=== PATIENT | female | born 1990 | race Caucasian/White ===

== ENCOUNTER 2019-04-08 22:49 | Emergency (ER) | payer OTHER ==
[~2019-04-08] VITALS: Ht 157.5 cm; Wt 61.2 kg
--- NOTE | 2019-04-08 23:06 | ED Lower Extremity ---
General Chief Complaint: Lower Extremity Stated Complaint: RT ANKLE AND FOOT INJ Source: patient Exam Limitations: no limitations History of Present Illness Date Seen by Provider: Apr 08, 2019 Time Seen by Provider: 22:55 Initial Comments The patient is a pleasant 28-year-old female. The coworker for evaluation of a right foot and ankle injury. She states at 1930 this evening a pallet full products at work rolled over her foot and ankle and tender foot underneath. She had to push the pallet off. Initially she didn't think the injury was significant and went to dinner and tried to walk it off. The pain continued and she has to walk with a limp. 4, calm, appears to be in no distress. She denies any other complaints at this time. She did not fall or hit her head or lose consciousness. Onset: this evening Pain/Injury Location: right foot, right ankle Method of Injury: twisted, other (pallet rolled over her foot and ankle) Modifying Factors: Improves With Movement (makes it worse), Improves With Rest (makes it better) Allergies and Home Medications Patient Home Medication List Home Medication List Reviewed: Yes Review of Systems Constitutional: no symptoms reported EENTM: no symptoms reported Respiratory: no symptoms reported Cardiovascular: no symptoms reported Gastrointestinal: no symptoms reported Genitourinary: no symptoms reported Musculoskeletal: other (right foot and ankle injury and pain) Skin: no symptoms reported Psychiatric/Neurological: No Symptoms Reported All Other Systems Reviewed Negative Unless Noted: Yes Past Fzdeodm-Qfabps-Wniusp Hx Past Med/Social Hx: Reviewed Nursing Past Med/Soc Hx Patient Social History Recent Foreign Travel: No Contact w/Someone Who Travel: No Physical Exam Vital Signs Vital Signs - First Documented 04/08/19 23:03 Temp 97.9 Pulse 76 Resp 18 Pulse Ox 100 O2 Delivery Room Air Capillary Refill : Height, Weight, BMI Height: '" Weight: lbs. oz. kg; BMI Method: General Appearance: WD/WN, no apparent distress HEENT: PERRL/EOMI, normal ENT inspection Neck: full range of motion, normal inspection Cardiovascular: regular rate, rhythm, no edema, no JVD Respiratory: normal breath sounds, no respiratory distress Gastrointestinal: non tender, soft Ankles: right ankle bone tenderness (to palpation of the right lateral malleolus, no dislocation or deformity, no swelling noted) Feet: right foot pain (right lateral foot pain noted, no swelling or deformity noted) Neurologic/Psychiatric: tube and rod straightener II-XII nml as tested, alert, normal mood/affect, oriented x 3 Skin: normal color, warm/dry Lymphatic: no adenopathy Progress/Results/Core Measures Results/Orders My Orders Orders - SHILPI BARBOUR DO Ankle 3 View Right (04/08/19 22:58) Foot 3 View Right (04/08/19 22:58) Ice: Apply To Affected Area (04/08/19 22:58) Link Bandage (04/08/19 23:21) Crutches (04/08/19 23:21) Vital Signs/I&O 04/08/19 23:03 Temp 97.9 Pulse 76 Resp 18 B/P (MAP) Pulse Ox 100 O2 Delivery Room Air Progress Progress Note : Progress Note @9072 - Patient informed of the imaging (prelim read) results which are unremarkable. Advised patient to use the Link wrap and crutches as provided as instructed. Advised the patient to take Tylenol and/or ibuprofen for pain relief as well as to use ice and elevation. Workup today fails to reveal any emergent pathology. The patient expresses verbal understanding and agreement stable for discharge at this time. Departure Impression Primary Impression: Right ankle injury Additional Impression: Right foot injury Disposition: 01 HOME, SELF-CARE Condition: Stable Departure-Patient Inst. Referrals: NO,LOCAL PHYSICIAN (PCP) Primary Care Physician Patient Instructions: Ankle Sprain (DC), Contusion (DC), General Trauma Add. Discharge Instructions: Take ibuprofen or Tylenol for pain relief. Wear the Link wrap provided. Use the crutches provided as instructed. Follow-up with her doctor in the next 2-3 days. Return to the ER for new or worsening symptoms. SHILPI BARBOUR DO Apr 08, 2019 23:06
[2019-04-08 23:33] VITALS: BP 115/76
--- NOTE | 2019-04-09 05:39 | Diagnostic Imaging Report ---
INDICATION: Pain status post injury COMPARISON: None. FINDINGS: 3 views of the right ankle were obtained. There is no acute fracture or dislocation. No focal osseous lesions are seen. The surrounding soft tissue structures are unremarkable. There are no radiopaque foreign bodies. IMPRESSION: 1. No acute fracture or dislocation in the right ankle. Dictated by: Dictated on workstation # [id number]
--- NOTE | 2019-04-09 05:41 | Diagnostic Imaging Report ---
INDICATION: Pain status post injury COMPARISON: None. FINDINGS: 3 views of the right foot demonstrate no acute fracture or dislocation. There are no focal osseous lesions. There is no soft tissue swelling. Joint spaces are well maintained. No radiopaque foreign bodies are seen. IMPRESSION: No acute fractures or dislocations of the right foot. Dictated by: Dictated on workstation # [id number]
--- OUTSIDE RECORDS SUMMARY | 2019-04-09 17:18 | XMS REPORT ---
Author Author Migration, Doctor Organization [facility] Address Unknown Phone Unavailable Care Team Providers Care Enrolled Nurse Name Role Phone Migration, Doctor Unavailable Unavailable PROBLEMS Type Condition ICD9-CM Code OOV58-KG Code Onset Dates Condition Status SNOMED Code Problem Screening for malignant neoplasm of the cervix V76.2 Active 007242902 Problem Screening examination for venereal disease V74.5 Active 574033539 Problem Unspecified vaginitis and vulvovaginitis 616.10 Active 165494040 Problem Unspecified inflammatory disease of female pelvic organs and tissues 614.9 Active 511324515 Problem examination or test, positive result V72.42 Active 302677485 Problem Supervision of other normal V22.1 Active 814658194 Problem Unspecified symptom associated with female genital organs 625.9 Active 525648786 Problem Dyspareunia 625.0 Active 00702501 ALLERGIES No Information ENCOUNTERS Encounter Location Date Diagnosis [facility] [address], [place] [address] 14 May, 2016 test negative Z32.02 [facility] [id number] [address] 14 Dec, 2014 [facility] [address], [place] [address] Dec, [facility] [address] [address] Jun, [facility] [id number] [address] Mar, [facility] [id number] [place] [address] Mar, [facility] [address], [place] [address] Mar, [facility] [id number] [address] Mar, [facility] [address] [address] January, [facility] [address] [address] Dec, [facility] [address] [address] Dec, [facility] [address] [address] Dec, [facility] [address] [address] Dec, [facility] [address] [address] Dec, [facility] [address], [place] [address] Dec, IMMUNIZATIONS No Known Immunizations SOCIAL HISTORY Never Assessed REASON FOR VISIT [facility] [place] OF CARE VITAL SIGNS MEDICATIONS Unknown Medications RESULTS No Results PROCEDURES No Known procedures INSTRUCTIONS MEDICATIONS ADMINISTERED No Known Medications
--- OUTSIDE RECORDS SUMMARY | 2019-04-09 17:18 | XMS REPORT ---
Author Author Migration, Doctor Organization [facility] Address Unknown Phone Unavailable Care Team Providers Care Guest Relations Manager Name Role Phone Migration, Doctor Unavailable Unavailable PROBLEMS Type Condition ICD9-CM Code WPY40-EK Code Onset Dates Condition Status SNOMED Code Problem Screening for malignant neoplasm of the cervix V76.2 Active 650539936 Problem Screening examination for venereal disease V74.5 Active 355568532 Problem Unspecified vaginitis and vulvovaginitis 616.10 Active 256138945 Problem Unspecified inflammatory disease of female pelvic organs and tissues 614.9 Active 937631130 Problem examination or test, positive result V72.42 Active 934311244 Problem Supervision of other normal V22.1 Active 087079879 Problem Unspecified symptom associated with female genital organs 625.9 Active 808939254 Problem Dyspareunia 625.0 Active 51439468 ALLERGIES Substance Reaction Event Type Date Status Vicodin Unknown Drug Allergy Dec, Active ENCOUNTERS Encounter Location Date Diagnosis [facility] [address] [address] Dec, [facility] [address], [place] [address] May, test negative Z32.02 [facility] [address], [place] [address] Dec, [facility] [address], [place] [address] Dec, [facility] [address], [place] [address] Jun, [facility] [id number] [address] Mar, [facility] [address], [place] [address] Mar, [facility] [address] [facility] [id number], [place] [address] Mar, [facility] [address] [facility] [id number], [place] [address] Mar, [facility] [address] [facility] [id number], [place] [address] January, [facility] [address] [facility] [id number], [place] [address] Dec, [facility] [address] [facility] [id number] [address] Dec, [facility] [address] [facility] [id number], [place] [address] Dec, [facility] [address] [facility] [id number], [place] [address] Dec, [facility] [address], [place] [address] Dec, [facility] [id number] [address] Dec, IMMUNIZATIONS No Known Immunizations SOCIAL HISTORY Never Assessed REASON FOR VISIT [facility] [place] CARE VITAL SIGNS MEDICATIONS Medication Instructions Dosage Frequency Start Date End Date Duration Status Progesterone Micronized 200 mg Mar, Active Flagyl 500 mg 1 tablet by Oral route 2 times per day for 14 days Dec, Active Bactrim DS 800-160 mg take 1 tablet by oral route every 12 hours for 10 days Dec, Active Doxycycline Hyclate 100 mg take 1 tablet (100 mg) by oral route 2 times per day for 14 days Dec, Active promethazine 25 mg take 1 tablet (25 mg) by oral route once daily at bedtime PRN Mar, Active Zofran ODT 8 mg PRN Mar, Active RESULTS No Results PROCEDURES No Known procedures INSTRUCTIONS MEDICATIONS ADMINISTERED No Known Medications
--- OUTSIDE RECORDS SUMMARY | 2019-04-09 17:18 | XMS REPORT ---
Author Author Migration, Doctor Organization [facility] Address Unknown Phone Unavailable Care Team Providers Care Pocket Machine Operator Name Role Phone Migration, Doctor Unavailable Unavailable PROBLEMS Type Condition ICD9-CM Code RKO94-OD Code Onset Dates Condition Status SNOMED Code Problem Screening for malignant neoplasm of the cervix V76.2 Active 004957636 Problem Screening examination for venereal disease V74.5 Active 944158695 Problem Unspecified vaginitis and vulvovaginitis 616.10 Active 210215360 Problem Unspecified inflammatory disease of female pelvic organs and tissues 614.9 Active 577586241 Problem examination or test, positive result V72.42 Active 650064624 Problem Supervision of other normal V22.1 Active 861836383 Problem Unspecified symptom associated with female genital organs 625.9 Active 131028493 Problem Dyspareunia 625.0 Active 95784076 ALLERGIES No Information ENCOUNTERS Encounter Location Date Diagnosis [facility] [address] [place] [address] Dec, [facility] [address], [place] [address] May, test negative Z32.02 [facility] [address] [address] Dec, [facility] [address], [place] [address] Dec, [facility] [address], [place] [address] Jun, [facility] [address], [place] [address] Mar, [facility] [address] [address] Mar, [facility] [address] [address] Mar, [facility] [address], [place] [address] Mar, [facility] [address], [place] [address] January, [facility] [address], [place] [address] Dec, [facility] [address] [address] Dec, [facility] [address], [place] [address] Dec, [facility] [address], [place] [address] Dec, [facility] [address], [place] [address] Dec, [facility] [id number] [address] Dec, IMMUNIZATIONS No Known Immunizations SOCIAL HISTORY Never Assessed REASON FOR VISIT [facility] [place] PLAN OF CARE VITAL SIGNS MEDICATIONS Unknown Medications RESULTS No Results PROCEDURES No Known procedures INSTRUCTIONS MEDICATIONS ADMINISTERED No Known Medications
--- OUTSIDE RECORDS SUMMARY | 2019-04-09 17:18 | XMS REPORT ---
Author Author Migration, Doctor Organization [facility] Address Unknown Phone Unavailable Care Team Providers Care Short Order Cook Name Role Phone Migration, Doctor Unavailable Unavailable PROBLEMS Type Condition ICD9-CM Code YGX96-KT Code Onset Dates Condition Status SNOMED Code Problem Screening for malignant neoplasm of the cervix V76.2 Active 188750026 Problem Screening examination for venereal disease V74.5 Active 351780337 Problem Unspecified vaginitis and vulvovaginitis 616.10 Active 536005856 Problem Unspecified inflammatory disease of female pelvic organs and tissues 614.9 Active 369961189 Problem examination or test, positive result V72.42 Active 080649495 Problem Supervision of other normal V22.1 Active 688125139 Problem Unspecified symptom associated with female genital organs 625.9 Active 909012417 Problem Dyspareunia 625.0 Active 72760316 ALLERGIES No Information ENCOUNTERS Encounter Location Date Diagnosis [facility] [address] [address] 14 May, 2016 test negative Z32.02 [facility] [id number] [address] 14 Dec, 2014 [facility] [address] [address] Dec, [facility] [address] [address] Jun, [facility] [address] [address] Mar, [facility] [id number] [place] [address] Mar, [facility] [address] [address] Mar, [facility] [id number] [address] Mar, [facility] [address] [address] January, [facility] [address], [place] [address] Dec, [facility] [address], [place] [address] Dec, [facility] [address], [place] [address] Dec, [facility] [address], [place] [address] Dec, [facility] [address], [place] [address] Dec, [facility] [address] [address] Dec, IMMUNIZATIONS No Known Immunizations SOCIAL HISTORY Never Assessed [place] [place] VITAL SIGNS MEDICATIONS Unknown Medications RESULTS No Results PROCEDURES No Known procedures INSTRUCTIONS MEDICATIONS ADMINISTERED No Known Medications
--- OUTSIDE RECORDS SUMMARY | 2019-04-09 17:18 | XMS REPORT ---
Author Author Migration, Doctor Organization [facility] Address Unknown Phone Unavailable Care Team Providers Care Plate Printer Name Role Phone Migration, Doctor Unavailable Unavailable PROBLEMS Type Condition ICD9-CM Code IYI08-YO Code Onset Dates Condition Status SNOMED Code Problem Screening for malignant neoplasm of the cervix V76.2 Active 285819718 Problem Screening examination for venereal disease V74.5 Active 861520772 Problem Unspecified vaginitis and vulvovaginitis 616.10 Active 861401821 Problem Unspecified inflammatory disease of female pelvic organs and tissues 614.9 Active 678700078 Problem examination or test, positive result V72.42 Active 768381962 Problem Supervision of other normal V22.1 Active 984831828 Problem Unspecified symptom associated with female genital organs 625.9 Active 123561079 Problem Dyspareunia 625.0 Active 40934476 ALLERGIES No Information ENCOUNTERS Encounter Location Date Diagnosis [facility] [address] [place] [address] Dec, [facility] [address], [place] [address] May, test negative Z32.02 [facility] [address], [place] [address] Dec, [facility] [address], [place] [address] Dec, [facility] [address], [place] [address] Jun, [facility] [address], [place] [address] Mar, [facility] [address], [place] [address] Mar, [facility] [address], [place] [address] Mar, [facility] [id number], [place] [address] Mar, [facility] [address], [place] [address] January, [facility] [id number], [place] [address] Dec, [facility] [address], [place] [address] Dec, [facility] [address], [place] [address] Dec, [facility] [address], [place] [address] Dec, [facility] [id number], [place] [address] Dec, [facility] [id number], [place] [address] Dec, IMMUNIZATIONS No Known Immunizations SOCIAL HISTORY Never Assessed REASON FOR VISIT [place] [place] C[place] VITAL SIGNS MEDICATIONS Unknown Medications RESULTS No Results PROCEDURES Procedure Date Ordered Result Body Site CYTOPATH C/V AUTO FLUID REDO January 13, 2013 INSTRUCTIONS MEDICATIONS ADMINISTERED No Known Medications
--- OUTSIDE RECORDS SUMMARY | 2019-04-09 17:18 | XMS REPORT ---
Author Author JAROD CONSTANTINO [facility] Address [address] [place] [address] Care Team Providers Care Hotel Services Supervisor Name Role Phone CONSTANTINOJAROD Unavailable PROBLEMS Type Condition ICD9-CM Code NGL32-PD Code Onset Dates Condition Status SNOMED Code Assessment test negative Z32.02 14 May, 2016 Active 399378651 Problem Screening for malignant neoplasm of the cervix V76.2 Active 024244147 Problem Supervision of other normal V22.1 Active 268495982 Problem examination or test, positive result V72.42 Active 974083642 Problem Dyspareunia 625.0 Active 79889358 Problem Unspecified vaginitis and vulvovaginitis 616.10 Active 010309491 Problem Screening examination for venereal disease V74.5 Active 809996149 Problem Unspecified symptom associated with female genital organs 625.9 Active 440556218 Problem Unspecified inflammatory disease of female pelvic organs and tissues 614.9 Active 193593696 ALLERGIES Unknown Allergies SOCIAL HISTORY No smoking Hx information available PLAN OF CARE VITAL SIGNS MEDICATIONS Unknown Medications RESULTS Name Result Date Reference Range TEST, SERUM (QUAL) 2016-06-05 hCG,Beta Subunit,Qual,Serum Negative Negative <6 PROCEDURES Procedure Date Ordered Related Diagnosis Body Site VENIPUNCT, ROUTINE* Jun 05, 2016 CHORIONIC GONADOTROPIN ASSAY Jun 05, 2016 IMMUNIZATIONS No Known Immunizations
== END 2019-04-08 23:33 | disposition home or self-care (01) ==
LOC: ER FS 22:51
DX: S99.911A Unspecified injury of right ankle, initial encounter (principal); S99.921A Unspecified injury of right foot, initial encounter; X50.1XXA Overexertion from prolonged static or awkward postures, initial encounter; Y92.59 Other trade areas as the place of occurrence of the external cause; Y99.0 Civilian activity done for income or pay
CPT/HCPCS: 73610; 73630

== ENCOUNTER 2019-05-30 19:39 | Emergency (ER) | payer OTHER ==
[~2019-05-30] VITALS: Ht 162.6 cm; Wt 63.5 kg
--- NOTE | 2019-05-30 20:13 | Diagnostic Imaging Report ---
EXAMINATION: Three views of the right hand. INDICATION: Hand injury. Smashed hand between carts at [employer]. FINDINGS: Alignment of the hand appears normal. There is no finding of an acute fracture. There is no joint dislocation. There is no suspicious bone lesion. Soft tissues are unremarkable. IMPRESSION: Negative radiographs of the right hand. Dictated by: Dictated on workstation # [id number]
--- NOTE | 2019-05-30 20:53 | ED Upper Extremity ---
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 She states that she was working with some carts when she accidentally got her hand caught between carts. She immediately had swelling and pain to the right hand. She is right-handed. She has no numbness or tingling. She has increased pain with movement of the hand. She also has increased pain with palpation over the injury of the hand. She did have ice on the injury which was helping some. Allergies and Home Medications Allergies Coded Allergies: acetaminophen (Verified Allergy, Unknown, 05/30/19) hydrocodone (Verified Allergy, Unknown, 05/30/19) Home Medications Naproxen 500 Mg Tablet, 500 MG PO BID PRN for pain/inflammation Prescribed by: HANSA NIETO on 05/30/192120 Patient Home Medication List Home Medication List Reviewed: Yes Review of Systems Constitutional: No chills, No fever EENTM: no symptoms reported Respiratory: no symptoms reported Cardiovascular: no symptoms reported Gastrointestinal: no symptoms reported Genitourinary: no symptoms reported Musculoskeletal: see HPI Skin: see HPI, other (bruising and swelling to the back of the hand were it was caught between the carts) Psychiatric/Neurological: Denies Numbness, Denies Paresthesia Past Haodvoi-Ifqrrd-Jfjebg Hx Past Med/Social Hx: Reviewed Nursing Past Med/Soc Hx Patient Social History Alcohol Use: Denies Use Recreational Drug Use: No Type Used: Cigarettes Recent Foreign Travel: No Contact w/Someone Who Travel: No Recent Infectious Disease Expo: No Recent Hopitalizations: No Physical Abuse: No Sexual Abuse: No Mistreated: No Fear: No Seasonal Allergies Seasonal Allergies: No Past Medical History Surgeries: Yes (Eye Surgery) Tubal Ligation Respiratory: No Cardiac: No Neurological: No 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 0oz. 63.550309vv; BMI Method:Stated General Appearance: WD/WN, no apparent distress Cardiovascular: normal peripheral pulses Wrist: Yes normal inspection, Yes non-tender, Yes no evidence of injury, Yes normal ROM Hand: Right, abrasions, bone tenderness, ecchymosis, soft tissue tenderness, swelling (mild swelling with abrasion and bruising to back of right hand with tenderness to palpation and movment. ) Neurologic/Tendon: normal sensation, normal motor functions, normal tendon functions Neurologic/Psychiatric: alert, normal mood/affect, oriented x 3 Skin: warm/dry, other (bruising and mild swelling to back of hand on right side where she had crush injury from getting caught between carts at work at [employer]) Progress/Results/Core Measures Results/Orders My Orders Orders - HANSA NIETO MD Hand 3 View Right (05/30/19 19:50) Vital Signs/I&O 05/30/19 05/30/19 19:56 21:37 Temp 96.2 96.2 Pulse 94 94 Resp 15 15 B/P (MAP) 108/69 (82) 108/69 (82) Pulse Ox 97 O2 Delivery Room Air Blood Pressure Mean: 82 Progress Progress Note : Progress Note X-rays of the right hand were obtained and did not demonstrate any acute bony abnormality. Will treat symptomatically with naproxen for pain and inflammation. A cockup wrist splint to give some rest and support for the hand and crush inj ury. Ice 15-20 minutes every few hours as needed for pain and swelling. Limit lifting to no more than 10 pounds at that time. Counseled to follow up with work comp in the next 1-2 days for repeat evaluation. Diagnostic Imaging Diagonstic Imaging: Xray Plain Films/CT/US/NM/MRI: hand Comments NAME: MARGRETTESSROSSI Dave MED REC#: [id number] PT STATUS: REG ER : 1990 PHYSICIAN: HANSA NIETO MD ADMIT DATE: 05/30/19/ER FS Signed Date of Exam:05/30/19 HAND 3 VIEW RIGHT EXAMINATION: Three views of the right hand. INDICATION: Hand injury. Smashed hand between carts at [employer]. FINDINGS: Alignment of the hand appears normal. There is no finding of an acute fracture. There is no joint dislocation. There is no suspicious bone lesion. Soft tissues are unremarkable. IMPRESSION: Negative radiographs of the right hand. Dictated by: Dictated on workstation # [id number] Dict: 05/30/192008 Trans: 05/30/192012 PJE [id number] Interpreted by: JUAN M MELENDEZ MD Electronically signed by: JUAN M MELENDEZ MD 05/30/192012 Reviewed: Reviewed by Me (and read by radiologist) Departure Impression Primary Impression: Contusion of right hand, initial encounter Additional Impression: Crushing injury of right hand, initial encounter Disposition: 01 HOME, SELF-CARE Condition: Stable Departure-Patient Inst. Decision time for Depature: 21:17 Referrals: MARKUS MEDEL MD (PCP/Family) Primary Care Physician Patient Instructions: Contusion (DC), Crush Injury (DC) Add. Discharge Instructions: Wear velcro hand/wrist splint for support. Ice 15-20 minutes every few hours. Check with [facility] and Dr. Zhang in next 1-2 days to recheck your hand and evaluate the restrictions for your work. All discharge instructions reviewed with patient and/or family. Voiced understanding. Scripts Naproxen (Naprosyn) 500 Mg Tablet 500 MG PO BID PRN for pain/inflammation for 10 Days, #20 TAB 0 Refills Prov: HANSA NIETO MD 05/30/19 HANSA NIETO MD May 30, 2019 20:53
[2019-05-30] MEDS ORDERED: NAPR-1071 PO (21:21)
[2019-05-30 21:37] VITALS: BP 108/69
== END 2019-05-30 21:40 | disposition home or self-care (01) ==
LOC: EDUNIT# 19:39 → ER FS 19:41
DX: S67.21XA Crushing injury of right hand, initial encounter (principal); S60.221A Contusion of right hand, initial encounter; Z88.5 Allergy status to narcotic agent; Z98.51 Tubal ligation status; W23.1XXA Caught, crushed, jammed, or pinched between stationary objects, initial encounter
CPT/HCPCS: 73130

== ENCOUNTER 2019-09-15 17:02 | Emergency (ER) | payer SELFPAY ==
[~2019-09-15] VITALS: Ht 156 cm; Wt 55.6 kg
[~2019-09-15 17:02] MED LIST: NAPR-1071 PO
[2019-09-15] MEDS ORDERED: TETRACAINE 0.5% OPHTH SOLN 4 ML BTL (SINGLE DOSE ONLY) ONE (18:00)
[2019-09-15] MEDS ORDERED: FLUORESCEIN (FLUOR-I-STRIPS) 1 MG STRP ONE (18:00)
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
[2019-09-15] MEDS ORDERED: PRDS5OP OP (18:18)
[2019-09-15 18:30] VITALS: BP 112/76
[2019-09-15] MEDS ORDERED: TETRACAINE 0.5% OPHTH SOLN 4 ML BTL (SINGLE DOSE ONLY) OP ONE (18:30)
== END 2019-09-15 18:26 | disposition home or self-care (01) ==
LOC: EDUNIT# 17:02 → ER FS 17:04
DX: S05.12XA Contusion of eyeball and orbital tissues, left eye, initial encounter (principal); Z88.6 Allergy status to analgesic agent; Z88.5 Allergy status to narcotic agent; Z98.51 Tubal ligation status; W34.09XA Accidental discharge from other specified firearms, initial encounter
CPT/HCPCS: 99282

== ENCOUNTER 2019-09-20 20:26 | Emergency (ER) | payer SELFPAY ==
[~2019-09-20] VITALS: Ht 154.9 cm; Wt 57.4 kg
[~2019-09-20 20:26] MED LIST changes: +PRDS5OP OP
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
[2019-09-20 21:41] VITALS: BP 120/81
== END 2019-09-20 21:41 | disposition home or self-care (01) ==
LOC: EDUNIT# 20:26 → ER FS 20:29
DX: S06.0X0A Concussion without loss of consciousness, initial encounter (principal); S13.4XXA Sprain of ligaments of cervical spine, initial encounter; Z88.6 Allergy status to analgesic agent; Z88.5 Allergy status to narcotic agent; Z91.040 Latex allergy status; Z77.22 Contact with and (suspected) exposure to environmental tobacco smoke (acute) (chronic); Z98.51 Tubal ligation status; V47.5XXA Car driver injured in collision with fixed or stationary object in traffic accident, initial encounter
CPT/HCPCS: 70450; 72125

== ENCOUNTER 2019-09-25 20:31 | Emergency (ER) | payer SELFPAY ==
[~2019-09-25] VITALS: Ht 154 cm; Wt 56.7 kg
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
[2019-09-25 21:43] VITALS: BP 115/77
== END 2019-09-25 21:43 | disposition home or self-care (01) ==
LOC: EDUNIT# 20:31 → ER FS 20:34
DX: S00.83XA Contusion of other part of head, initial encounter (principal); F41.9 Anxiety disorder, unspecified; F43.10 Post-traumatic stress disorder, unspecified; R40.2142 Coma scale, eyes open, spontaneous, at arrival to emergency department; R40.2252 Coma scale, best verbal response, oriented, at arrival to emergency department; R40.2362 Coma scale, best motor response, obeys commands, at arrival to emergency department; Z88.6 Allergy status to analgesic agent; Z88.5 Allergy status to narcotic agent; Z91.040 Latex allergy status; Z77.22 Contact with and (suspected) exposure to environmental tobacco smoke (acute) (chronic); Z98.51 Tubal ligation status; Y04.8XXA Assault by other bodily force, initial encounter
CPT/HCPCS: 70450; 70486

== ENCOUNTER → 2020-03-20 | Outpatient (CLI) | payer SELFPAY ==
[2020-03-20 16:48] LABS: BASOPHILS % (AUTO) 1 % (0-10); EOSINOPHILS % (AUTO) 2 % (0-10); HEMATOCRIT 42 % (35-52); HEMOGLOBIN 14.4 G/DL (11.5-16.0); LYMPHOCYTES # (AUTO) 2.4 X 10^3 (1.0-4.0); LYMPHOCYTES % (AUTO) 33 % (12-44); MEAN CORPUSCULAR HEMOGLOBIN 30 PG (25-34); MEAN CORPUSCULAR HGB CONC 35 G/DL (32-36); MEAN CORPUSCULAR VOLUME 87 FL (80-99); MEAN PLATELET VOLUME 9.2 FL (7.4-10.4); MONOCYTES % (AUTO) 9 % (0-12); NEUTROPHILS % (AUTO) 55 % (42-75); PLATELET COUNT 286 10^3/uL (130-400); RED CELL DISTRIBUTION WIDTH 11.9 % (10.0-14.5); WHITE BLOOD COUNT 7.4 10^3/uL (4.3-11.0)
[2020-03-20 16:49] LABS: BASOPHILS # (AUTO) 0.1 10^3/uL (0.0-0.1); EOSINOPHILS # (AUTO) 0.2 10^3/uL (0.0-0.3); MONOCYTES # (AUTO) 0.7 X 10^3 (0.0-1.0)
[2020-03-20 20:16] LABS: FREE T4 (FREE THYROXINE) 0.99 NG/DL (0.70-1.48)
== END ==
LOC: LAB FS 16:05
PROVIDERS: ATTEND Family Medicine
DX: R22.1 Localized swelling, mass and lump, neck (principal)
CPT/HCPCS: 36415; 84439; 84443; 85025

== ENCOUNTER 2021-05-15 16:17 | Day surgery (SDC) | payer SELFPAY ==
[~2021-05-15] VITALS: Ht 154 cm; Wt 62.0 kg
[2021-05-15] VITALS (7 sets, daily range): BP systolic 104–116; BP diastolic 63–69
--- NOTE | 2021-05-15 16:19 | ED GI ---
General Stated Complaint: LRQ PAIN; NAUSEA; DIZZINESS History of Present Illness Date Seen by Provider: May 15, 2021 Time Seen by Provider: 16:19 Initial Comments 30-year-old female presents with abdominal pain starting at 2 AM today. Pain began suddenly and has been persistent since then and gradually getting worse. Pain primarily of her right lower abdomen with radiation to her right groin. Denies any history of kidney stones as well as polycystic ovarian syndrome. She is also had her tubes tied and states she is on her period currently. Associated nausea without vomiting, denies recent illness, fever or chills. Denies chest pain or shortness of air. Allergies and Home Medications Allergies Coded Allergies: acetaminophen (Verified Allergy, Unknown, 05/30/19) hydrocodone (Verified Allergy, Unknown, 05/30/19) latex (Verified Allergy, Unknown, 09/15/19) Home Medications Naproxen 500 Mg Tablet, 500 MG PO BID PRN for pain/inflammation Prescribed by: HANSA NIETO on 05/30/192120 Prednisolone/Sulfacetamide 5 Ml Susp, 2 DROPS OP Q4H Prescribed by: FALLON HUTTON on 09/15/19 181 Patient Home Medication List Home Medication List Reviewed: Yes Review of Systems Review of Systems Constitutional: see HPI; No chills, No fever; malaise EENTM: No Symptoms Reported Respiratory: Denies Cough, Denies Shortness of Air Cardiovascular: Denies Chest Pain, Denies Syncope Gastrointestinal: Denies Abdomen Distended; Abdominal Pain; Denies Constipated, Denies Diarrhea; Nausea; Denies Vomiting Genitourinary: Denies Frequency, Denies Flank Pain Musculoskeletal: No back pain, No joint pain Skin: No change in color, No rash Past Fvrjrhe-Qluppo-Yongbw Hx Patient Social History Tobacco Use?: Yes Seasonal Allergies Seasonal Allergies: No Past Medical History Surgeries: Yes (Eye Surgery, TUBAL LIGATION) Tubal Ligation Respiratory: No Cardiac: No 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 0oz. 63.245846fi; 23.00 BMI Method:Stated General Appearance: WD/WN, moderate distress (sreaming and writhing in pain, rather hysterical on arrival.) HEENT: PERRL/EOMI, normal ENT inspection Neck: non-tender, supple Respiratory: chest non-tender, lungs clear, normal breath sounds Cardiovascular: regular rate, rhythm, no edema, no JVD Gastrointestinal: soft, no pulsatile mass; No distended, No guarding; tenderness (diffuse mid-abdomen) Back: normal inspection, no CVA tenderness Neurologic/Psychiatric: alert, other (hystrionic) Progress/Results/Core Measures Results/Orders Lab Results Laboratory Tests Test 05/15/21 16:23 Range/Units White Blood Count 15.5 H 4.3-11.0 10^3/uL Red Blood Count 5.01 3.80-5.11 10^6/uL Hemoglobin 15.2 11.5-16.0 g/dL Hematocrit 43 35-52 % Mean Corpuscular Volume 85 80-99 fL Mean Corpuscular Hemoglobin 30 25-34 pg Mean Corpuscular Hemoglobin Concent 35 32-36 g/dL Red Cell Distribution Width 12.0 10.0-14.5 % Platelet Count 375 130-400 10^3/uL Mean Platelet Volume 9.3 9.0-12.2 fL Immature Granulocyte % (Auto) 0 % Neutrophils (%) (Auto) 75 42-75 % Lymphocytes (%) (Auto) 15 12-44 % Monocytes (%) (Auto) 9 0-12 % Eosinophils (%) (Auto) 1 0-10 % Basophils (%) (Auto) 1 0-10 % Neutrophils # (Auto) 11.7 H 1.8-7.8 X 10^3 Lymphocytes # (Auto) 2.3 1.0-4.0 X 10^3 Monocytes # (Auto) 1.3 H 0.0-1.0 X 10^3 Eosinophils # (Auto) 0.1 0.0-0.3 10^3/uL Basophils # (Auto) 0.1 0.0-0.1 10^3/uL Immature Granulocyte # (Auto) 0.1 0.0-0.1 10^3/uL Neutrophils % (Manual) 79 % Lymphocytes % (Manual) 14 % Monocytes % (Manual) 6 % Eosinophils % (Manual) 1 % Blood Morphology Comment NORMAL Sodium Level 138 135-145 MMOL/L Potassium Level 4.0 3.6-5.0 MMOL/L Chloride Level 102 98-107 MMOL/L Carbon Dioxide Level 24 21-32 MMOL/L Anion Gap 12 5-14 MMOL/L Blood Urea Nitrogen 7 7-18 MG/DL Creatinine 0.82 0.60-1.30 MG/DL Estimat Glomerular Filtration Rate 82 BUN/Creatinine Ratio 9 Glucose Level 133 H 70-105 MG/DL Calcium Level 9.6 8.5-10.1 MG/DL Corrected Calcium 8.5-10.1 MG/DL Total Bilirubin 0.6 0.1-1.0 MG/DL Aspartate Amino Transf (AST/SGOT) 11 5-34 U/L Alanine Aminotransferase (ALT/SGPT) 6 0-55 U/L Alkaline Phosphatase 71 40-136 U/L Total Protein 7.5 6.4-8.2 GM/DL Albumin 4.9 H 3.2-4.5 GM/DL My Orders Orders - ROVENSTINE,MERLE L DO Urinalysis (05/15/21 16:20) Hcg,Qualitative Urine (05/15/21 16:20) Cbc With Automated Diff (05/15/21 16:20) Comprehensive Metabolic Panel (05/15/21 16:20) Ct Abdomen/Pelvis Wo (05/15/21 16:30) Fentanyl Inj (Sublimaze Injection) (05/15/21 16:30) Ns Iv 1000 Ml (Sodium Chloride 0.9%) (05/15/21 16:30) Ondansetron Injection (Zofran Injectio (05/15/21 16:30) Manual Differential (05/15/21 16:23) Fentanyl Inj (Sublimaze Injection) (05/15/21 17:00) Medications Given in ED Current Medications Medications Dose Ordered Sig/Oscar Route Start Time Stop Time Status Last Admin Dose Admin Fentanyl Citrate 50 mcg ONCE ONCE IVP 05/15/21 16:30 05/15/21 16:32 DC 05/15/21 16:37 50 MCG Fentanyl Citrate 50 mcg ONCE ONCE IVP 05/15/21 17:00 05/15/21 17:01 DC 05/15/21 16:52 50 MCG Ondansetron HCl 4 mg ONCE ONCE IVP 05/15/21 16:30 05/15/21 16:32 DC 05/15/21 16:37 4 MG Vital Signs/I&O 05/15/21 16:20 Temp 36.2 Pulse 123 Resp 20 B/P (MAP) 123/56 (78) Pulse Ox 94 O2 Delivery Room Air Diagnostic Imaging Diagonstic Imaging: CT Plain Films/CT/US/NM/MRI: abdomen Comments Date of Exam:05/15/21 CT ABDOMEN/PELVIS WO PROCEDURE: CT abdomen and pelvis without contrast. TECHNIQUE: Multiple contiguous axial images were obtained through the abdomen and pelvis without the use of intravenous contrast. Auto Exposure Controls were utilized during the CT exam to meet ALARA standards for radiation dose reduction. INDICATION: Periumbilical and right lower quadrant abdominal pain. COMPARISON: No prior studies are available for comparison. The lung bases are clear. The liver and gallbladder are unremarkable. There is no biliary ductal dilatation. The pancreas and spleen are unremarkable. No adrenal mass is detected. No renal calculi are detected. There is no hydronephrosis. There is inflammation in the right lower quadrant. There is thickening of the appendix with periappendiceal inflammation present. There is a tiny hyperdensity within the appendix which may represent a small appendicolith. Findings are suggestive of acute appendicitis. No bowel obstruction is seen. No abscess formation is seen. There is a left adnexal cyst measuring 2.4 cm consistent with an ovarian cyst. The uterus and bladder are unremarkable. IMPRESSION: Findings consistent with acute appendicitis. No abscess formation or bowel obstruction is seen. Dictated on workstation # [id number] Dict: 05/15/21 1725 Trans: 05/15/21 172 [facility] [id number] Interpreted by: NKECHI CARRASQUILLO MD Electronically signed by: Departure Communication (Admissions) Time/Spoke to Admitting Phy: 17:40 spoke to Gen Luis Stafford who accepts for transfer to [place] Impression Primary Impression: Appendicitis Qualified Codes: K35.80 - Unspecified acute appendicitis Additional Impression: Abdominal pain Qualified Codes: R10.31 - Right lower quadrant pain Disposition: 30 STILL A PATIENT Condition: Improved Admissions Decision to Admit Reason: Admit from ER (General) Decision to Admit/Date: May 15, 2021 Time/Decision to Admit Time: 17:40 Departure-Patient Inst. Referrals: MARKUS MEDEL MD (PCP/Family) Primary Care Physician MERLE VERNON DO May 15, 2021 16:19
[2021-05-15] MEDS ORDERED: fentaNYL INJ 100 MCG/2 ML AMP IVP ONE ×2 (16:30→17:00)
[2021-05-15] MEDS ORDERED: NS IV 1000 ML 1,000 ML IV SCH (16:30)
[2021-05-15] MEDS ORDERED: ONDANSETRON 4 MG/2 ML (SDV) Z0FRAN IVP ONE (16:30)
[2021-05-15 16:44] LABS: BASOPHILS % (AUTO) 1 % (0-10); EOSINOPHILS % (AUTO) 1 % (0-10); HEMATOCRIT 43 % (35-52); HEMOGLOBIN 15.2 g/dL (11.5-16.0); LYMPHOCYTES # (AUTO) 2.3 X 10^3 (1.0-4.0); LYMPHOCYTES % (AUTO) 15 % (12-44); MEAN CORPUSCULAR HEMOGLOBIN 30 pg (25-34); MEAN CORPUSCULAR HGB CONC 35 g/dL (32-36); MEAN CORPUSCULAR VOLUME 85 fL (80-99); MEAN PLATELET VOLUME 9.3 fL (9.0-12.2); MONOCYTES % (AUTO) 9 % (0-12); NEUTROPHILS # (AUTO) 11.7 X 10^3 (1.8-7.8); NEUTROPHILS % (AUTO) 75 % (42-75); PLATELET COUNT 375 10^3/uL (130-400); WHITE BLOOD COUNT 15.5 10^3/uL (4.3-11.0)
[2021-05-15 16:45] LABS: BASOPHILS # (AUTO) 0.1 10^3/uL (0.0-0.1); EOSINOPHILS # (AUTO) 0.1 10^3/uL (0.0-0.3); MONOCYTES # (AUTO) 1.3 X 10^3 (0.0-1.0)
[2021-05-15 17:01] LABS: ALANINE AMINOTRANSFERASE 6 U/L (0-55); ALKALINE PHOSPHATASE 71 U/L (40-136); BILIRUBIN,TOTAL 0.6 MG/DL (0.1-1.0); BUN/CREATININE RATIO 9; CALCIUM 9.6 MG/DL (8.5-10.1); CARBON DIOXIDE 24 MMOL/L (21-32); CHLORIDE 102 MMOL/L (98-107); CREATININE SERUM 0.82 MG/DL (0.60-1.30); GFR ESTIMATED 82; GLUCOSE 133 MG/DL (70-105); SODIUM 138 MMOL/L (135-145)
[2021-05-15 17:02] LABS: ALBUMIN 4.9 GM/DL (3.2-4.5); EOSINOPHILS % (MANUAL) 1 %; LYMPHOCYTES % (MANUAL) 14 %; MONOCYTES % (MANUAL) 6 %; NEUTROPHILS % (MANUAL) 79 %; RBC MORPH NORMAL; TOTAL PROTEIN 7.5 GM/DL (6.4-8.2)
--- NOTE | 2021-05-15 17:30 | Diagnostic Imaging Report ---
PROCEDURE: CT abdomen and pelvis without contrast. TECHNIQUE: Multiple contiguous axial images were obtained through the abdomen and pelvis without the use of intravenous contrast. Auto Exposure Controls were utilized during the CT exam to meet ALARA standards for radiation dose reduction. INDICATION: Periumbilical and right lower quadrant abdominal pain. COMPARISON: No prior studies are available for comparison. The lung bases are clear. The liver and gallbladder are unremarkable. There is no biliary ductal dilatation. The pancreas and spleen are unremarkable. No adrenal mass is detected. No renal calculi are detected. There is no hydronephrosis. There is inflammation in the right lower quadrant. There is thickening of the appendix with periappendiceal inflammation present. There is a tiny hyperdensity within the appendix which may represent a small appendicolith. Findings are suggestive of acute appendicitis. No bowel obstruction is seen. No abscess formation is seen. There is a left adnexal cyst measuring 2.4 cm consistent with an ovarian cyst. The uterus and bladder are unremarkable. IMPRESSION: Findings consistent with acute appendicitis. No abscess formation or bowel obstruction is seen. Dictated by: Dictated on workstation # [id number]
[2021-05-15] MEDS ORDERED: PIPERACILLIN SODIUM/TAZOBACTAM 4.5 GM in NS (IVPB) 100 ML IV ONE (18:00)
[2021-05-15] MEDS ORDERED: SUCCINYLCHOLINE INJ 100 MG/5 ML SYR/VIAL ONE (18:52)
[2021-05-15] MEDS ORDERED: ROCURONIUM 10 MG/ML 5 ML SYRINGE IV ONE (18:52)
[2021-05-15] MEDS ORDERED: ONDANSETRON 4 MG/2 ML (SDV) Z0FRAN ONE ×3 (18:52→20:06)
[2021-05-15] MEDS ORDERED: fentaNYL INJ 100 MCG/2 ML AMP ONE (18:52)
[2021-05-15] MEDS ORDERED: proPOfol 200 MG/20 ML (DIPRIVAN) VIAL IV ONE (18:52)
[2021-05-15] MEDS ORDERED: LIDOCAINE PF 2% 5 ML (XYLOCAINE) VIAL ONE (18:52)
[2021-05-15] MEDS ORDERED: MIDAZOLAM 2 MG/2 ML (VERSED) VIAL ONE (18:52)
[2021-05-15] MEDS ORDERED: SCOPOLAMINE 1.5 MG (TRANSDERM-SCOP) PATCH ONE (19:14)
[2021-05-15] MEDS ORDERED: FAMOTIDINE 20MG/2ML IV (PEPCID) ONE (19:14)
[2021-05-15] MEDS ORDERED: ONDANSETRON 4 MG/2 ML (SDV) Z0FRAN IV ONE (19:15)
[2021-05-15] MEDS ORDERED: FAMOTIDINE 20MG/2ML IV (PEPCID) IV ONE (19:15)
[2021-05-15] MEDS ORDERED: SCOPOLAMINE 1.5 MG (TRANSDERM-SCOP) PATCH TOP ONE (19:15)
--- NOTE | 2021-05-15 19:29 | History & Physical-Surgical ---
History of Present Illness History of Present Illness Reason for visit/HPI CC: RLQ abd pain Patient is a 30 year old female. Periumbilical pain that moved to the rlq. Sharp pain, severe. Movement makes worse. Nothing makes better. Started this morning around 2 am and has been constant. CT scan reviewed and consistent c acute appendicitis. + nausea and vomiting Date of Admission Date Seen by a Provider: May 15, 2021 Time Seen by a Provider: 19:24 I consulted on this patient on 05/15/21 19:24 Attending Physician India Adam DO Admitting Physician So Johnson MD Consult Allergies and Home Medications Allergies Coded Allergies: acetaminophen (Verified Allergy, Unknown, 05/30/19) hydrocodone (Verified Allergy, Unknown, 05/30/19) latex (Verified Allergy, Unknown, 09/15/19) Home Medications Naproxen 500 Mg Tablet, 500 MG PO BID PRN for pain/inflammation Prescribed by: HANSA NIETO on 05/30/192120 Prednisolone/Sulfacetamide 5 Ml Susp, 2 DROPS OP Q4H Prescribed by: FALLON HUTTON on 09/15/19 181 Patient Home Medication List Home Medication List Reviewed: Yes Past Slufksz-Wvskjm-Qgrpvl Hx Patient Social History Smoking Status: Current Everyday Smoker Type Used: Cigarettes 2nd Hand Smoke Exposure: Yes Recent Hopitalizations: No Alcohol Use?: No Have you traveled recently?: No Seasonal Allergies Seasonal Allergies: No Surgeries History of Surgeries: Yes (Eye Surgery, TUBAL LIGATION) Surgeries: Tubal Ligation Respiratory History of Respiratory Disorde: No Cardiovascular History of Cardiac Disorders: No Neurological History of Neurological Disord: No 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 Genitourinary History of Genitourinary Disor: No Gastrointestinal History of Gastrointestinal Di: No Musculoskeletal History of Musculoskeletal Dis: No Endocrine History of Endocrine Disorders: No HEENT History of HEENT Disorders: No Cancer History of Cancer: No Psychosocial History of Psychiatric Problem: Yes Behavioral Health Disorders: Anxiety, PTSD Integumentary History of Skin or Integumenta: No Blood Transfusions History of Blood Disorders: No Reviewed Nursing Assessment Reviewed/Agree w Nursing PMH: Yes Family Medical History Significant Family History: No Pertinent Family Hx Review of Systems Constitutional: No chills, No diaphoresis EENTM: No blurred vision, No double vision Respiratory: No cough, No dyspnea on exertion Cardiovascular: No chest pain, No palpitations Gastrointestinal: RLQ, abdominal pain (RLQ), nausea, vomiting Genitourinary: No decreased output, No discharge Musculoskeletal: No back pain, No gout, No joint pain Skin: No change in color, No change in hair/nails Psychiatric/Neurological: Denies Anxiety, Denies Depressed, Denies Emotional Problems All Other Systems Reviewed Negative Unless Noted: Yes (Negative excepted noted.) Physical Exam Vital Signs Vital Signs - First Documented 05/15/21 16:20 Temp 36.2 Pulse 123 Resp 20 B/P (MAP) 123/56 (78) Pulse Ox 94 O2 Delivery Room Air Capillary Refill : Less Than 3 Seconds Height, Weight, BMI Height: 5'4.00" Weight: 140lbs. 0oz. 63.757506mz; 26.00 BMI Method:Stated General Appearance: No Apparent Distress, WD/WN, Anxious HEENT: PERRL/EOMI, Normal ENT Inspection Neck: Non Tender, Supple Respiratory: Chest Non Tender, No Accessory Muscle Use, No Respiratory Distress Cardiovascular: Regular Rate, Rhythm, No JVD Gastrointestinal: Soft, Tenderness (rlq) Rectal: Deferred Back: No CVA Tenderness, No Vertebral Tenderness Neurologic/Psychiatric: Alert, Oriented x3 Skin: Normal Color, Warm/Dry Lymphatic: No Adenopathy Data Review Labs Laboratory Tests 05/15/21 16:23: White Blood Count 15.5H, Red Blood Count 5.01, Hemoglobin 15.2, Hematocrit 43, Mean Corpuscular Volume 85, Mean Corpuscular Hemoglobin 30, Mean Corpuscular Hemoglobin Concent 35, Red Cell Distribution Width 12.0, Platelet Count 375, Mean Platelet Volume 9.3, Immature Granulocyte % (Auto) 0, Neutrophils (%) (Auto) 75, Lymphocytes (%) (Auto) 15, Monocytes (%) (Auto) 9, Eosinophils (%) (Auto) 1, Basophils (%) (Auto) 1, Neutrophils # (Auto) 11.7H, Lymphocytes # (Auto) 2.3, Monocytes # (Auto) 1.3H, Eosinophils # (Auto) 0.1, Basophils # (Auto) 0.1, Immature Granulocyte # (Auto) 0.1, Neutrophils % (Manual) 79, Lymphocytes % (Manual) 14, Monocytes % (Manual) 6, Eosinophils % (Manual) 1, Blood Morphology Comment NORMAL, Sodium Level 138, Potassium Level 4.0, Chloride Level 102, Carbon Dioxide Level 24, Anion Gap 12, Blood Urea Nitrogen 7, Creatinine 0.82, Estimat Glomerular Filtration Rate 82, BUN/Creatinine Ratio 9, Glucose Level 133H, Calcium Level 9.6, Corrected Calcium , Total Bilirubin 0.6, Aspartate Amino Transf (AST/SGOT) 11, Alanine Aminotransferase (ALT/SGPT) 6, Alkaline Phosphatase 71, Total Protein 7.5, Albumin 4.9H Assessment/Plan Assessment/Plan Admission Diagonsis rlq abd pain acute appendicitis Admission Status: Other (Same Day Surgery) Assessment/Plan rlq abd pain acute appendicitis patient with acute appendicitis. she and family discussed risks and benefits of laparoscopic appendectomy all other indicated procedures they understand and wish to proceed. NPO. To OR. INDIA ADAM DO May 15, 2021 19:29
[2021-05-15] MEDS: LACTATED RINGERS 1,000 ML IV PRN ×2 (19:30→20:15)
[2021-05-15] MEDS ORDERED: ceFAZolin INJECTION 1,000 MG ONE (19:56)
[2021-05-15] MEDS ORDERED: LIDOCAINE/EPI 1%-1:100,000 (XYLOCAINE) 20ML ONE (19:56)
[2021-05-15] MEDS ORDERED: MEPERIDINE (DEMEROL) INJ 50 MG/ML ONE (20:05)
[2021-05-15] MEDS ORDERED: morphine INJ 10 MG/ML 1ML (SYR OR VIAL) ONE (20:05)
[2021-05-15] MEDS ORDERED: HYDROmorphone 2 MG/ML VIAL (DILAUDID) ONE (20:06)
[2021-05-15] MEDS ORDERED: PROMETHAZINE INJ 25 MG/ML (PHENERGAN) AMP ONE (20:06)
[2021-05-15] MEDS ORDERED: NEOSTIGMINE 3 MG/3 ML VIAL ONE (20:25)
[2021-05-15] MEDS ORDERED: GLYCOPYRROLATE 0.2 MG/ML (ROBINUL) 2 ML VIAL ONE (20:25)
--- NOTE | 2021-05-15 20:32 | Progress Note-Post Operative ---
Post-Operative Progess Note Surgeon (s)/Boom Cat Operator (s) Surgeon INDIA ADAM DO Boom Cat Operator: na Pre-Operative Diagnosis rlq abd pain, acute appendicitis Post-Operative Diagnosis same Procedure & Operative Findings Date of Procedure 05/15/21 Procedure Performed/Findings PROCEDURE: Laparoscopic appendectomy. COMPLICATIONS: None. INDICATIONS: The patient is a 30 year old female who has been having right lower quadrant abdominal pain. Patient's exam consistent with appendicitis. I discussed risk and benefits of laparoscopic appendectomy and all indicated procedures with the possibility being a normal appendix. The patient understands the risks and benefits and wishes to proceed. Consent was signed on the chart. DESCRIPTION OF PROCEDURE: The patient was taken to the operating suite, prepped and draped in a sterile fashion. Timeout was performed. Local anesthetic was infiltrated just above the umbilicus and 11-blade scalpel was used to make a skin incision. Cautery was used to dissect down to the fascia and scored. Kochers were used to grasp and elevate it and the abdomen was then entered. A 0 Vicryl was placed in a [id number] fashion for closure at the end of the case. The balloon trocar was inserted into the abdomen and pneumoperitoneum was achieved. Under direct visualization of the laparoscope, a 5 mm trocar was placed in the suprapubic region and a 5 mm trocar was placed in the left lower quadrant. Appendix was located, Inflamed and dilated appendix. The base of the appendix was dissected around. Once at the base an Endo-DAVID 2.5 stapler was then fired across the base of the appendix. The mesoappendix was divided with ligasure prior to stapling the base. It was then placed in an Endobag and removed through the 12 mm trocar site. The abdomen was then irrigated and suctioned. No other pathology noted. The abdomen was then desufflated and the trocars were removed. The 0 Vicryl placed at the beginning of the case was then tied closing the 12 mm fascial defect. The skin was then closed using 4-0 Monocryl in a subcuticular fashion. The abdomen was then washed and dried and Skin Affix was placed over the incisions. The patient tolerated the procedure well without any complications and was taken to the recovery room in stable condition. Anesthesia Type general Estimated Blood Loss Estimated blood loss (mL): minimal Specimens/Packing Specimens Removed appendix INDIA ADAM DO May 15, 2021 20:32
[2021-05-15] MEDS ORDERED: SEVOFLURANE (ULTANE) 15 ML INHAL SOLN ONE (20:35)
[2021-05-15] MEDS ORDERED: DOCU-143 PO ×2 (20:37)
[2021-05-15] MEDS ORDERED: TRM50T PO ×2 (20:37)
--- NOTE | 2021-05-15 20:38 | Discharge Inst-Simple/Standard ---
Discharge Inst-Standard Discharge Medications New, Converted or Re-Newed RX: RX on Chart Patient Instructions/Follow Up Plan of Care/Instructions/FU: 2 weeks Patel Activity as Tolerated: No Discharge Diet: Regular Diet Other Inst to Patient Follow up Appt: Make appointment for 2 week. Instructions: No lifting greater than 10 pounds. No strenuous activity. May shower in 24 hours, no tub bath or soaking. Use incentive spirometer at home as directed. No Smoking Skin/Wound Care: You have special glue over your incision that will fall off on it's own. Symptoms to Report: Appetite Changes, Extremity Discoloration, Numbness/Tingling, Swelling Increased, Bleeding Excessive, Eyesight Changes, Pain Increased, Urine Color Change, Constipation(Persistent), Fever over 101 degree F, Pain/Pressure in chest, Urinating Difficulty, Cough Up/Vomit Blood, Heart Beat Irreg/Pounding, Pain/Pressure in jaw, Vaginal Bleeding Increase, Cramps in feet or legs, Lightheadedness, Pain/Pressure in shoulder, Diarrhea(Persistent), Memory Changes Suddenly, Questions/Concerns, Weight gain consecutive days, Dizziness/Fainting, Nausea/Vomiting, Shortness of Breath, Weight gain over 2 pounds If questions or concerns contact your physician Or seek help at emergency department. INDIA ADAM DO May 15, 2021 20:38
[2021-05-15] MEDS ORDERED: morphine INJ 10 MG/ML 1ML (SYR OR VIAL) IVP ONE (20:45)
[2021-05-15] MEDS ORDERED: PROMETHAZINE INJ 25 MG/ML (PHENERGAN) AMP IVP ONE (20:45)
[2021-05-15] MEDS ORDERED: HYDROmorphone 2 MG/ML VIAL (DILAUDID) IV ONE (20:45)
[2021-05-15] MEDS ORDERED: ONDANSETRON 4 MG/2 ML (SDV) Z0FRAN IVP PRN (20:45)
[2021-05-15] MEDS ORDERED: MEPERIDINE (DEMEROL) INJ 50 MG/ML IVP ONE (20:45)
--- NOTE | 2021-05-16 07:51 | Anesthesia-General Post-Op ---
General Patient Condition Mental Status/LOC: Same as Preop Cardiovascular: Satisfactory Nausea/Vomiting: Absent Respiratory: Satisfactory Pain: Controlled Complications: Absent Post Op Complications Complications None Follow Up Care/Instructions Patient Instructions None needed. Anesthesia/Patient Condition Patient Condition Patient was doing well last PM at time of discharge to home at 2348 per nursing staff; no complaints, stable vital signs, no apparent adverse anesthesia problems. LUIS MIGUEL READ DO May 16, 2021 07:51
== END 2021-05-15 23:48 | disposition home or self-care (01) ==
LOC: ER FS 16:18 → SDC 19:02
PROVIDERS: ATTEND Surgery
DX: K35.80 Unspecified acute appendicitis (principal); Z79.899 Other long term (current) drug therapy
CPT/HCPCS: 36415; 74176; 80053; 84703; 85007; 85027; 96361; 96374; 96375

== ENCOUNTER 2021-05-19 12:42 | Emergency (ER) | payer SELFPAY ==
[~2021-05-19] VITALS: Ht 154 cm; Wt 57.0 kg
[~2021-05-19 12:42] MED LIST changes: +DOCU-143 PO; +TRM50T PO
[2021-05-19] MEDS ORDERED: IBUPROFEN TABLET 200 MG TAB PO STA (13:11)
[2021-05-19] MEDS ORDERED: ENOXAPARIN 40 MG/0.4 ML (LOVENOX) SYR SC ONE (13:15)
[2021-05-19] MEDS ORDERED: CEPH500T PO (13:21)
[2021-05-19] MEDS ORDERED: ENOX40DI13 SQ (13:22)
--- NOTE | 2021-05-19 13:22 | ED Upper Extremity ---
General Chief Complaint: Upper Extremity Stated Complaint: R ARM PAIN/SWELLING, RED RASH, S/P SX 05/15 Nursing Triage Note: ARRIVED VIA AMB WITH COMPLAINTS OF RIGHT ARM PAIN STARTING ON . NON INJURY. RECENT LAP APPY ET IV HAD BEEN IN THE AC OF THAT ARM. MOM STATES THE BP CUFF WAS ALSO ON THAT ARM. THEY ARE WORRIED ABOUT A DVT. History of Present Illness Date Seen by Provider: May 19, 2021 Time Seen by Provider: 12:50 Initial Comments 30-year-old female presents for right arm pain that began following her appendectomy on May 15, 2001. Patient reports with in the first few hours after her surgery she noted pain in her right arm. She assumed it was related to the gas pain from her laparoscopic surgery. As that resolved she continued to have right upper arm pain from the shoulder to the elbow. It is posterior medial pain and there is trace erythema measured 70 cm x 120 cm there is no warmth, induration or fluctuance. She reports that it took multiple IV a ttempts before she had placement for her surgery. There is no inflammation or ecchymosis at her AC or any additional IV start sites. She has spoken to the on-call surgeon by phone who was concerned that she could have a DVT and she was referred here for an ultrasound. The patient and her family were informed that ultrasound is only available if she meets certain criteria otherwise it can be scheduled on an outpatient basis on Friday. She is using the tramadol approximately every 6-8 hours as pain, she reports primarily for arm pain and not for abdominal pain. She does report that she is resting frequently but getting up and walking, she has no history of DVTs. She denies any nausea or vomiting, she has flatulence but has not had bowel movement since surgery. She denies any abdominal pain. She is a chronic smoker. Onset: yesterday Pain/Injury Location: right arm Allergies and Home Medications Allergies Coded Allergies: acetaminophen (Verified Allergy, Unknown, 05/30/19) hydrocodone (Verified Allergy, Unknown, 05/30/19) latex (Verified Allergy, Unknown, 09/15/19) Home Medications Cephalexin 500 Mg Tablet, 500 MG PO QID Prescribed by: CHINMAY CALLAHAN on 05/19/21 132 Docusate Sodium 100 Mg Capsule, 100 MG PO BID Prescribed by: INDIA ADAM on 05/15/212036 Enoxaparin Sodium 40 Mg/0.4 Ml Syringe, 40 MG SQ DAILY Prescribed by: CHINMAY CALLAHAN on 05/19/21 132 Prednisolone/Sulfacetamide 5 Ml Susp, 2 DROPS OP Q4H Prescribed by: FALLON HUTTON on 09/15/191817 Tramadol HCl 50 Mg Tablet, 50 MG PO Q6H Prescribed by: INDIA ADAM on 05/15/212036 Patient Home Medication List Home Medication List Reviewed: Yes Review of Systems Constitutional: no symptoms reported, see HPI Musculoskeletal: see HPI, muscle pain (Right upper arm) Skin: see HPI, change in color (Trace erythema right arm) All Other Systems Reviewed Negative Unless Noted: Yes Past Tzzlamr-Ylxygd-Waqjrs Hx Patient Social History Tobacco Use?: No Smoking Status: Current Everyday Smoker Substance use?: No Seasonal Allergies Seasonal Allergies: No Past Medical History Surgeries: Yes (Eye Surgery, TUBAL LIGATION) Tubal Ligation Respiratory: No Currently Using CPAP: No Currently Using BIPAP: No Cardiac: No Neurological: No 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 0oz. [id number]; 24.00 BMI Method:Stated General Appearance: WD/WN, no apparent distress Neck: non-tender, full range of motion, supple, normal inspection Cardiovascular: normal peripheral pulses, regular rate, rhythm, no edema, other (Pulses on the upper extremities at the radial, ulnar, and brachial 2+ and symmetirc. Cap refil < 2 sec bilat UEs. ) Respiratory: chest non-tender, lungs clear, normal breath sounds Gastrointestinal: normal bowel sounds, non tender, soft; No tenderness; other (Incision sites healing with skin adhesive in place, no erythema, warmth or drainage.) Neurologic/Tendon: normal sensation, normal motor functions Neurologic/Psychiatric: no motor/sensory deficits, alert, normal mood/affect, oriented x 3 Skin: No cyanosis, No ecchymosis; other (very faint erythema to Right upper arm, posterior/medial aspect. Marked with skin marker, measured 77T037 cm. Tender to touch, no warmth, drainage, erythema, or induration.) Progress/Results/Core Measures Results/Orders Lab Results Laboratory Tests Test 05/19/21 13:30 Range/Units White Blood Count 7.8 4.3-11.0 10^3/uL Red Blood Count 4.70 3.80-5.11 10^6/uL Hemoglobin 14.2 11.5-16.0 g/dL Hematocrit 41 35-52 % Mean Corpuscular Volume 86 80-99 fL Mean Corpuscular Hemoglobin 30 25-34 pg Mean Corpuscular Hemoglobin Concent 35 32-36 g/dL Red Cell Distribution Width 11.6 10.0-14.5 % Platelet Count 305 130-400 10^3/uL Mean Platelet Volume 9.3 9.0-12.2 fL Immature Granulocyte % (Auto) 0 % Neutrophils (%) (Auto) 65 42-75 % Lymphocytes (%) (Auto) 22 12-44 % Monocytes (%) (Auto) 11 0-12 % Eosinophils (%) (Auto) 1 0-10 % Basophils (%) (Auto) 1 0-10 % Neutrophils # (Auto) 5.1 1.8-7.8 10^3/uL Lymphocytes # (Auto) 1.7 1.0-4.0 10^3/uL Monocytes # (Auto) 0.9 0.0-1.0 10^3/uL Eosinophils # (Auto) 0.1 0.0-0.3 10^3/uL Basophils # (Auto) 0.1 0.0-0.1 10^3/uL Immature Granulocyte # (Auto) 0.0 0.0-0.1 10^3/uL D-Dimer 0.49 0.00-0.49 UG/ML Sodium Level 138 135-145 MMOL/L Potassium Level 3.7 3.6-5.0 MMOL/L Chloride Level 107 98-107 MMOL/L Carbon Dioxide Level 23 21-32 MMOL/L Anion Gap 8 5-14 MMOL/L Blood Urea Nitrogen 4 L 7-18 MG/DL Creatinine 0.71 0.60-1.30 MG/DL Estimat Glomerular Filtration Rate 97 BUN/Creatinine Ratio 6 Glucose Level 97 70-105 MG/DL Calcium Level 9.5 8.5-10.1 MG/DL Corrected Calcium 9.3 8.5-10.1 MG/DL Total Bilirubin 0.5 0.1-1.0 MG/DL Aspartate Amino Transf (AST/SGOT) 11 5-34 U/L Alanine Aminotransferase (ALT/SGPT) 12 0-55 U/L Alkaline Phosphatase 57 40-136 U/L Total Protein 6.9 6.4-8.2 GM/DL Albumin 4.2 3.2-4.5 GM/DL My Orders Orders - CHINMAY CALLAHAN Ibuprofen Tablet (Motrin Tablet) (05/19/21 13:11) Enoxaparin Injection (Lovenox Injection) (05/19/21 13:15) Cbc With Automated Diff (05/19/21 13:17) Comprehensive Metabolic Panel (05/19/21 13:17) Fibrin Degradation Products (05/19/21 13:17) Medications Given in ED Current Medications Medications Dose Ordered Sig/Oscar Route Start Time Stop Time Status Last Admin Dose Admin Enoxaparin Sodium 40 mg ONCE ONCE SC 05/19/21 13:15 05/19/21 13:17 DC 05/19/21 13:39 40 MG Vital Signs/I&O 05/19/21 05/19/21 12:50 14:12 Temp 36.2 Pulse 89 84 Resp 16 16 B/P (MAP) 102/83 (89) 109/70 Pulse Ox 97 96 O2 Delivery Room Air Room Air Blood Pressure Mean: 89 Progress Progress Note : Time: 12:50 Progress Note Patient seen and evaluated, will obtain labs to determine if D-dimer is elevated, then make plans for ultrasound if indicated. Will give Motrin 600 mg orally and Lovenox 40 mg subcutaneously. 1345 D-dimer upper limits of normal. Discussed this with the patient and her family. Recommended treating the cellulitis with an antibiotic, 1 dose of Lovenox tomorrow. Follow-up with her surgeon on Friday morning which an outpatient ultrasound can be ordered if indicated at that time. Departure Impression Primary Impression: Cellulitis of right upper arm Additional Impression: Post-op pain Disposition: HOME, SELF-CARE Condition: Improved Departure-Patient Inst. Decision time for Depature: :45 Referrals: MARKUS MEDEL MD (PCP/Family) Primary Care Physician Patient Instructions: Cellulitis (Skin Infection), Adult (DC) Add. Discharge Instructions: Increase water intake, 16 ounces every 2 hours while awake. Continue to get up and walk regularly, you may use your right arm as comfortable. Continue to use the postoperative tramadol as prescribed. Use ibuprofen 600 mg every 8 hours as needed for additional pain relief. Take the antibiotic as prescribed. Take the Lovenox tomorrow, 1 dose. Call your surgeon first thing Friday morning, for follow up and/or to schedule an outpatient ultrasound if warranted. Return to the emergency department for new, urgent healthcare needs. All discharge instructions reviewed with patient and/or family. Voiced un derstanding. Scripts Enoxaparin Sodium (Lovenox) 40 Mg/0.4 Ml Syringe 40 MG SQ DAILY, #1 EA 0 Refills Prov: CHINMAY CALLAHAN 05/19/21 Cephalexin (Cephalexin) 500 Mg Tablet 500 MG PO QID, #20 TAB 0 Refills Prov: CHINMAY CALLAHAN 05/19/21 Copy Copies To 1: MARKUS MEDEL MD; INDIA ADAM AMY ARNP May 19, 2021 13:22
[2021-05-19 13:35] LABS: BASOPHILS # (AUTO) 0.1 10^3/uL (0.0-0.1); BASOPHILS % (AUTO) 1 % (0-10); EOSINOPHILS # (AUTO) 0.1 10^3/uL (0.0-0.3); EOSINOPHILS % (AUTO) 1 % (0-10); HEMATOCRIT 41 % (35-52); HEMOGLOBIN 14.2 g/dL (11.5-16.0); LYMPHOCYTES # (AUTO) 1.7 10^3/uL (1.0-4.0); LYMPHOCYTES % (AUTO) 22 % (12-44); MEAN CORPUSCULAR HEMOGLOBIN 30 pg (25-34); MEAN CORPUSCULAR HGB CONC 35 g/dL (32-36); MEAN CORPUSCULAR VOLUME 86 fL (80-99); MEAN PLATELET VOLUME 9.3 fL (9.0-12.2); MONOCYTES # (AUTO) 0.9 10^3/uL (0.0-1.0); MONOCYTES % (AUTO) 11 % (0-12); NEUTROPHILS # (AUTO) 5.1 10^3/uL (1.8-7.8); NEUTROPHILS % (AUTO) 65 % (42-75); PLATELET COUNT 305 10^3/uL (130-400); WHITE BLOOD COUNT 7.8 10^3/uL (4.3-11.0)
[2021-05-19 13:44] LABS: ALBUMIN 4.2 GM/DL (3.2-4.5)
[2021-05-19 13:45] LABS: POTASSIUM 3.7 MMOL/L (3.6-5.0)
[2021-05-19 13:46] LABS: CALCIUM 9.5 MG/DL (8.5-10.1)
[2021-05-19 13:47] LABS: TOTAL PROTEIN 6.9 GM/DL (6.4-8.2)
[2021-05-19 13:49] LABS: BILIRUBIN,TOTAL 0.5 MG/DL (0.1-1.0)
[2021-05-19 13:51] LABS: CREATININE SERUM 0.71 MG/DL (0.60-1.30)
[2021-05-19 14:12] VITALS: BP 109/70
== END 2021-05-19 14:12 | disposition home or self-care (01) ==
LOC: EDUNIT# 12:42 → ER 12:44
DX: L03.113 Cellulitis of right upper limb (principal); G89.18 Other acute postprocedural pain; F17.200 Nicotine dependence, unspecified, uncomplicated; Z79.01 Long term (current) use of anticoagulants; Z79.52 Long term (current) use of systemic steroids
CPT/HCPCS: 36415; 80053; 85025; 85379